=== PATIENT | male | born 1980 | race Two or more races ===

== ENCOUNTER → 2025-02-09 | Emergency (ER) | payer BC ==
[~2025-02-09] VITALS: Ht 177.8 cm; Wt 77.1 kg
[~2025-02-09] MED LIST: 0.9 % SODIUM CHLORIDE 500 ML IV STA; CEFTRIAXONE SODIUM 1,000 MG VIAL IV ONE; FAMOtidine 10 MG/ML (4ML VIAL) IV ONE; KETOROLAC TROMETHAMINE 30 MG VIAL IV ONE; MORPHINE SULFATE 4 MG/ML VIAL IV STA; ONDANSETRON HCL 2 MG/ML VIAL IV STA; ONDANSETRON HCL 2 MG/ML VIAL ONE; TAMS0.4C PO; TAMSULOSIN HCL 0.4 MG CAP PO ONE; TRAM1TAB98 PO
[2025-02-09 01:33] LABS: HEMATOCRIT 42.9 % (39.0-48.0); HEMOGLOBIN 14.7 g/dL (13-16.00); MEAN CELL VOLUME 91.2 fL (80.0-100.00); MEAN CORPUSCULAR HEMOGLOBIN 31.3 pg (27.00-32.0); MEAN CORPUSCULAR HGB CONC 34.4 g/dl (32.0-36.0); PLATELET COUNT 152 K/uL (150-450); RED CELL DISTRIBUTION WIDTH 12.7 % (11.5-14.5)
[2025-02-09 01:56] LABS: BILIRUBIN TOTAL 0.27 mg/dL (0.3-1.2); CREATININE SERUM 1.07 mg/dL (0.70-1.30); GFR 75.43; POTASSIUM 3.64 mEq/L (3.5-5.1)
[2025-02-09 03:20] LABS: URINE APPEARANCE Clear; URINE BILIRRUBIN Negative (NEGATIVE); URINE BLOOD Negative; URINE COLOR Yellow; URINE GLUCOSE Negative (NEGATIVE); URINE KETONE Trace (NEGATIVE); URINE LEUKOCYTE Negative; URINE NITRATE Negative; URINE PROTEIN Negative (NEGATIVE); URINE UROBILINOGEN 0.2 E.U./dl
[2025-02-09 03:23] LABS: URINE BACTERIA 63.6 uL (0.0-1933); URINE EPITHELIAL CELLS 4.2 uL (0.0-38.8); URINE WBC 5.3 uL (0.0-23.2)
[2025-02-09 04:10] LABS: URINE CAST 0.14 uL (0.0-1.40); URINE RBC 1.6 uL (0.0-20.8)
== END | disposition home or self-care (01) ==
LOC: ER 01:03
PROVIDERS: General Practice
DX: R10.9 Unspecified abdominal pain (principal); Z87.442 Personal history of urinary calculi; Z91.011 Allergy to milk products; N20.1 Calculus of ureter; N20.0 Calculus of kidney